=== PATIENT | male | born 1980 | race Caucasian/White ===

== ENCOUNTER 2017-01-11 23:30 | Emergency (ER) | payer OTHER ==
[~2017-01-11] VITALS: Ht 188 cm; Wt 90.2 kg
[2017-01-11 23:33] VITALS: BP 129/85; PULSE 62; RESP 16; TEMP 97.9; O2SAT 100
--- NOTE | 2017-01-12 00:07 | PD ---
HPI Chief Complaint: Musculoskeletal Complaint Time Seen by Provider: 23:45 Travel History International Travel<30 days: No Contact w/Intl Traveler<30days: No Traveled to known affect area: No History of Present Illness HPI The patient is a 36-year-old male that complains of a crampy pain today in the right posterior thigh. He states it is not a hamstring and extending the knee and stretching his hamstring does not reproduce the pain. He states the pain comes on when he sits still and bends his knee at 90. He has never had a pain like this before. He took 600 Motrin today but this did not help the pain. 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 The patient states he had a friend with a similar complaint and it turned out to be a blood clot and he is worried about a blood clot. [facility] Past Medical History Medical History: Denies Significant Hx Anxiety: Yes Diminished Hearing: No Immunizations Current: Yes Tetanus Vaccination: Never Vaccinated Past Surgical History Surgical History: No Previous Surgery Social History Alcohol Use: Yes (SOCIALLY) Tobacco Use: No Substance Use: No Allergies-Medications (Allergen,Severity, Reaction): Coded Allergies: No Known Allergies (Verified , 01/11/17) Reported Meds & Prescriptions Reported Meds & Active Scripts Active No Active Prescriptions or Reported Medications Review of Systems Except as stated in HPI: all other systems reviewed are Neg Physical Exam Narrative GENERAL: Well-nourished, well-developed patient in minimal apparent distress with his right posterior thigh pain SKIN: Focused skin assessment warm/dry. HEAD: Normocephalic. EYES: No scleral icterus. No injection or drainage. NECK: Supple, trachea midline. No JVD or lymphadenopathy. CARDIOVASCULAR: Regular rate and rhythm without murmurs, gallops, or rubs. RESPIRATORY: Breath sounds equal bilaterally. No accessory muscle use. GASTROINTESTINAL: Abdomen soft, non-tender, nondistended. MUSCULOSKELETAL: No cyanosis, or edema. There is no apparent tenderness over the hamstrings. Stretching the hamstrings out by extending the knee does not reproduce the patient's pain. There is some tenderness on one spot in the mid posterior thigh. No cord is palpated in the calf. No swelling is noted in either the upper or lower leg. Homans sign is negative and there is no calf vein tenderness present. BACK: Nontender without obvious deformity. No CVA tenderness. Data Data Last Documented VS Vital Signs Date Time Temp Pulse Resp B/P Pulse Ox O2 Delivery O2 Flow Rate FiO2 01/11/17 23:33 97.9 62 16 129/85 100 Orders Us Leg Venous Doppler (01/12/17 00:01) MDM Medical Decision Making Medical Screen Exam Complete: Yes Emergency Medical Condition: Yes Medical Record Reviewed: Yes Interpretation(s) Ultrasound of the right leg is normal, no evidence of DVT. Differential Diagnosis Fasciitis, pulled hamstring, DVT Narrative Course The 600 of Motrin that he took earlier this evening may be working, the pain is reduced at this time. He was offered a Toradol shot but declined. Diagnosis Primary Impression: Fasciitis Additional Impression: Right thigh pain Additional Instructions: As we discussed, take the Motrin one tablet 3 times daily. You can try a heating pad on as well as setting an interposed a towel between your skin and the pad area sometimes this is useful. Hot is not useful but warm may help. Follow-up with her primary care physician if this does not get better within 4- 5 days. Med/Other Pt SpecificInfo: Prescription(s) given Scripts Ibuprofen 800 Mg [id number] Mg PO TID #44 TAB Ref 0 Prov:Delmar Dillon MD 01/12/17 Disposition: 01 DISCHARGE HOME Condition: Stable Delmar Dillon MD Jan 12, 2017 00:07
--- NOTE | 2017-01-12 00:37 | RADHPO ---
EXAM DATE/TIME: 01/12/2017 00:22 [facility] COMPARISON: No previous studies available for comparison. INDICATIONS : Right leg pain. MEDICAL HISTORY : Right leg pain. SURGICAL HISTORY : None. ENCOUNTER: Initial ACUITY: 1 day PAIN SCORE: 4/10 LOCATION: Right leg. TECHNIQUE: Venous ultrasound of the leg was performed from the inguinal ligament to the proximal calf. Real-guilherme e, color Doppler and spectral tracing, compression and augmentation techniques were used. FINDINGS: There is normal compressibility of the deep venous system from the inguinal region to the proximal ca lf. No echogenic clot is seen in the lumen of the common femoral, femoral, popliteal, and posterior tibial veins. There is a normal response of the venous system to proximal and distal augmentation an d respiration. CONCLUSION: Normal examination. Cortes Webber MD on January 12, 2017 at 0:35 Board Certified Radiologist. This report was verified electronically.
[2017-01-12] MEDS ORDERED: IBUP800T23 PO (00:41)
== END 2017-01-12 00:53 | disposition home or self-care (01) ==
LOC: PHED 23:30
DX: M72.9 Fibroblastic disorder, unspecified (principal); M79.651 Pain in right thigh; Z86.59 Personal history of other mental and behavioral disorders
CPT/HCPCS: 93971

== ENCOUNTER 2017-01-18 08:20 | Emergency (ER) | payer OTHER ==
[~2017-01-18] VITALS: Ht 188 cm; Wt 84.0 kg
[~2017-01-18 08:20] MED LIST: IBUP800T23 PO
[2017-01-18 08:24] VITALS: BP 146/84; PULSE 84; RESP 16; TEMP 97.8; O2SAT 98
[2017-01-18] MEDS ORDERED: FLUT1SPR5 EACH NARE (08:44)
--- NOTE | 2017-01-18 08:54 | PD ---
HPI Chief Complaint: Oral / Dental Pain or Problem Time Seen by Provider: 08:54 Travel History International Travel<30 days: No Contact w/Intl Traveler<30days: No Traveled to known affect area: No History of Present Illness HPI 36-year-old male presents to the emergency department with complaint of bilateral jaw pain since yesterday. Denies injury. He also reports nasal congestion, scratchy throat that onset yesterday. He had low-grade fever of 99.7 last night. Denies nausea, vomiting. Denies tooth pain. Denies ear pain. Denies clicking of the jaw. Says the pain is worse in the morning, and better throughout the day when he uses his jaw, and then worse again at night. Has taken ibuprofen with good relief of pain. Denies chest pain, shortness of breath, abdominal pain. No known allergies. Has no established primary care provider. No other modifying factors or associated signs and symptoms. PFSH Past Medical History Anxiety: Yes Diminished Hearing: No Immunizations Current: Yes Social History Alcohol Use: Yes (SOCIALLY) Tobacco Use: No Substance Use: No Allergies-Medications (Allergen,Severity, Reaction): Coded Allergies: No Known Allergies (Verified , 01/18/17) Reported Meds & Prescriptions Reported Meds & Active Scripts Active Ibuprofen 800 Mg Tab 800 Mg PO Q6HR PRN Deltasone (Prednisone) 20 Mg Tab 40 Mg PO DAILY 5 Days Amoxicillin 500 Mg Cap 500 Mg PO BID 10 Days Ibuprofen 800 Mg Tab 800 Mg PO TID Reported Flonase Nasal [place] (Fluticasone Nasal [place]) 50 Mcg/Act [place] 50 Mcg EACH NARE BID Review of Systems Except as stated in HPI: all other systems reviewed are Neg Physical Exam Narrative GENERAL: Well-nourished, well-developed male patient, in no acute distress; afebrile, nontoxic-appearing SKIN: Warm and dry. No rash. HEAD: Atraumatic. Normocephalic. No facial edema. No clicking to bilateral TMJ with opening and closing of the mouth. Mouth opens completely and closes completely. EYES: Pupils equal and round at 3 mm with brisk reaction. No scleral icterus. No injection or drainage. PERRLA. ENT: Mucosa pink and moist. Oropharynx with erythema; without edema or exudate. No uvular edema. No uvular, palatal, or tonsillar deviation. Airway patent. EARS: Bilateral pinnae and external canals appear within normal limits. Unable to visualize right tympanic membrane secondary to cerumen impaction. Left tympanic membranes without erythema, dullness or perforation. NECK: Trachea midline. No lymphadenopathy. CARDIOVASCULAR: Regular rate and rhythm. RESPIRATORY: No accessory muscle use. GASTROINTESTINAL: Flat. MUSCULOSKELETAL: No obvious deformities. No clubbing. No cyanosis. No edema. NEUROLOGICAL: Awake and alert. Oriented 3. No obvious cranial nerve deficits. Motor grossly within normal limits. Normal speech. Moves all extremities. 5/5 strength to all extremities. PSYCHIATRIC: Appropriate mood and affect; insight and judgment normal. Data Data Last Documented VS Vital Signs Date Time Temp Pulse Resp B/P Pulse Ox O2 Delivery O2 Flow Rate FiO2 01/18/17 08:24 97.8 84 16 146/84 98 Orders Ibuprofen (Motrin) (01/18/17 09:00) Ear Irrigation (01/18/17 08:54) Group A Rapid Strep Screen (01/18/17 08:54) Strep Culture (Group A) (01/18/17 09:00) [facility] Medical Decision Making Medical Screen Exam Complete: Yes Emergency Medical Condition: Yes Medical Record Reviewed: Yes Differential Diagnosis Nonspecific jaw pain, strep pharyngitis, pharyngitis, cerumen impaction Narrative Course 36-year-old male with bilateral jaw pain. On physical exam he has a right cerumen impaction. The right ear was irrigated and cerumen impaction successfully removed. The right tympanic membrane is erythematous, dull, and with loss of landmarks; without perforation. I will treat the patient with amoxicillin for otitis media. I will also give him a prescription for Deltasone for the jaw pain and I discussed starting the Deltasone if the jaw pain does not subside with the amoxicillin. Rapid strep is pending and the patient will be discharged prior to results. Amoxicillin, Deltasone, ibuprofen prescribed for home. Instructed patient to follow up with primary care provider or return to the emergency department on Monday if symptoms persist despite antibiotic therapy. Patient verbalizes understanding and agreement with treatment plan. Patient is medically cleared and stable for discharge. Discussed reasons to return to the emergency department. Instructed patient to follow up with primary care provider. Patient agrees with treatment plan. The patients vital signs are stable and the patient is stable for outpatient follow- up and treatment. Patient discharged home, stable and in no acute distress. Procedures Procedure Narrative Cerumen impaction removal: Right ear was irrigated with warm water and hydrogen peroxide. Cerumen impaction successfully removed. Patient tolerated well. Diagnosis Primary Impression: Jaw pain Additional Impressions: Right otitis media Qualified Code: H66.91 - Right otitis media, unspecified chronicity, unspecified otitis media type Impacted cerumen of right ear Referrals: Primary Care Physician Patient Instructions: General Instructions, Otitis Media (ED) Departure Forms: Tests/Procedures, Work Release Enter return to work date: Jan 19, 2017 Additional Instructions: Take antibiotics as prescribed and complete full course Ibuprofen or Tylenol as directed and as needed to reduce pain and fever Avoid getting water in the ears Do not put anything in the ears; including Q-tips Follow-up with your primary care provider in 2-3 days if symptoms persist Return to the emergency department immediately with worsening of symptoms Med/Other Pt SpecificInfo: Prescription(s) given Scripts Ibuprofen 800 Mg [id number] Mg PO Q6HR PRN (PAIN) #30 TAB Ref 0 Prov:Laura Rodriguez 01/18/17 Prednisone (Deltasone)20 Mg Tab40 Mg PO DAILY 5 Days Ref 0 Prov:Laura Rodriguez 01/18/17 Amoxicillin 500 Mg [id number] Mg PO BID 10 Days Ref 0 Prov:Laura Rodriguez 01/18/17 Disposition: 01 DISCHARGE HOME Condition: Stable Laura Rodriguez Jan 18, 2017 08:54
[2017-01-18] MEDS ORDERED: IBUPROFEN 800 MG TAB PO ONE (09:00)
[2017-01-18] MEDS ORDERED: AMOX500C PO (09:13)
[2017-01-18] MEDS ORDERED: IBUP800T23 PO (09:13)
[2017-01-18] MEDS ORDERED: PRED-503 PO (09:13)
== END 2017-01-18 10:03 | disposition home or self-care (01) ==
LOC: NEPK 08:20
DX: R68.84 Jaw pain (principal); H66.91 Otitis media, unspecified, right ear; H61.21 Impacted cerumen, right ear
CPT/HCPCS: 87081; 87880; 99283

== ENCOUNTER 2017-11-08 17:42 | Emergency (ER) | payer OTHER ==
[~2017-11-08] VITALS: Ht 188 cm; Wt 90.0 kg
[~2017-11-08 17:42] MED LIST changes: +AMOX500C PO; +FLUT1SPR5 EACH NARE; +IBUP1TAB7 PO; -IBUP800T23 PO; +PRED-503 PO
[2017-11-08 17:45] VITALS: BP 158/77; PULSE 67; RESP 12; TEMP 98.2; O2SAT 99
--- NOTE | 2017-11-08 18:15 | PD ---
HPI Chief Complaint: Headache Time Seen by Provider: 18:06 Travel History International Travel<30 days: No Contact w/Intl Traveler<30days: No Traveled to known affect area: No History of Present Illness HPI 37-year-old male presents to emergency department for evaluation of headache 2- 3 days. Intermittently occurring. Patient states 3 days ago his niece found on his head. Since then when he goes to the gym or does any sudden movements he feels significant pressure, mostly on the left side, behind his left eye. No visual disturbances. No cough and chest congestion. No recent illnesses, fever, chills. No other focal deficits or weakness. No nausea vomiting. No other symptoms to report. PFSH Past Medical History Anxiety: Yes Diminished Hearing: No Immunizations Current: Yes Social History Alcohol Use: Yes (SOCIALLY) Tobacco Use: No Substance Use: No Allergies-Medications (Allergen,Severity, Reaction): Coded Allergies: No Known Allergies (Verified Adverse Reaction, Unknown, 11/08/17) Reported Meds & Prescriptions Reported Meds & Active Scripts Active Mometasone Nasal [place] 50 Mcg/Act [place] 2 Carnation EACH NARE DAILY Augmentin (Amoxicillin-Clavulanate) 875-125 Mg Tab 1 Tab PO BID 14 Days Review of Systems Except as stated in HPI: all other systems reviewed are Neg Physical Exam Narrative GENERAL: Well-nourished male patient, ambulatory with a non-ataxic gait no acute distress SKIN: Focused skin assessment warm/dry. HEAD: Atraumatic. Normocephalic. Tenderness elicited palpation over the frontal maxillary sinuses greater on the left than the right. EYES: Pupils equal and round. No scleral icterus. No injection or drainage. ENT: No nasal bleeding or discharge. Mucous membranes pink and moist. NECK: Trachea midline. No JVD. CARDIOVASCULAR: Regular rate and rhythm. No murmur appreciated. RESPIRATORY: No accessory muscle use. Clear to auscultation. Breath sounds equal bilaterally. GASTROINTESTINAL: Abdomen soft, non-tender, nondistended. Hepatic and splenic margins not palpable. MUSCULOSKELETAL: No obvious deformities. No clubbing. No cyanosis. No edema. NEUROLOGICAL: Awake and alert. No obvious cranial nerve deficits. Motor grossly within normal limits. Normal speech. PSYCHIATRIC: Appropriate mood and affect; insight and judgment normal. Data Data Last Documented VS Vital Signs Date Time Temp Pulse Resp B/P (MAP) Pulse Ox O2 Delivery O2 Flow Rate FiO2 11/08/17 20:04 11/08/17 19:09 69 20 100 11/08/17 17:[address] Brain W/O Iv Contrast(Rout) (11/08/17 ) Ed Discharge Order (11/08/17 19:34) MDM Medical Decision Making Medical Screen Exam Complete: Yes Emergency Medical Condition: Yes Medical Record Reviewed: Yes Differential Diagnosis Minor head injury versus intracranial hemorrhage versus concussion versus sinusitis Narrative Course 37-year-old male presents to emergency department for evaluation of a headache intermittently occurring over last 2-3 days. Patient appears without distress. No focal deficits or weakness. CT imaging reveals no acute intracranial abnormality however patient does have severe sphenoid sinusitis. Patient be treated on oral antibiotics and mometasone nasal spray. He is encouraged to seek research clerk evaluation. She agrees to return immediately with any acute worsening of symptoms. Diagnosis Primary Impression: Sinus headache Additional Impression: Sphenoid sinusitis Qualified Codes: J32.3 - Chronic sphenoidal sinusitis Referrals: Ear / Nose / Throat Specialist Primary Care Physician Patient Instructions: General Instructions, Sinusitis (ED) Departure Forms: Tests/Procedures, Work Release Enter return to work date: Nov 10, 2017 Additional Instructions: Humidified air may help to alleviate symptoms [id number] nasal spray, 1 spray each nare in the morning and night. [id number] antihistamines such as Zantac or Benadryl as directed on the package may help symptoms resolve Follow-up with a primary care provider Seek urine is and throat specialist evaluation if symptoms persist Return immediately to the emergency department with any acute worsening symptoms Med/Other Pt SpecificInfo: Prescription(s) given Scripts Mometasone Nasal [place] (Mometasone Nasal [place]) 50 Mcg/Act [place] 2 SPRAY EACH NARE DAILY for Allergy Management, #1 BOTTLE 0 Refills Prov: Janey Cortez 11/08/17 Amoxicillin-Clavulanate (Augmentin) 875-125 Mg Tab 1 TAB PO BID for Infection for 14 Days, #28 TAB 0 Refills Prov: Janey Cortez 11/08/17 Disposition: 01 DISCHARGE HOME Condition: Stable Janey Cortez Nov 08, 2017 18:15
--- NOTE | 2017-11-08 18:29 | PD ---
Physical Exam Date Seen by Provider: Nov 08, 2017 Narrative This patient presents concerned about a head injury. He reports a young child was jumping on his head a few days ago. There was no loss of consciousness. Since then, he has had a couple of headaches associated with physical exertion. Data Data Last Documented VS Vital Signs Date Time Temp Pulse Resp B/P (MAP) Pulse Ox O2 Delivery O2 Flow Rate FiO2 11/08/17 17:45 98.2 67 12 158/77 (104) [address] Brain W/O Iv Contrast(Rout) (11/08/17 ) MDM Supervised Visit with JOSSY: Yes Narrative Course I, Dr. Marquez, have reviewed the advance practice practitioner's documentation and am in agreement, met with the patient face to face, made the diagnosis, and the medical decision making was done by me. *My assessment and Findings: Patient is smiling and moving all 4 extremities equally and in no distress. Please see Janey Cortez NP's note for results of laboratory and radiographic evaluation, ED course, final diagnosis and disposition Scripts No Active Prescriptions or Reported Meds Violeta Marquez MD Nov 08, 2017 18:29
[2017-11-08 19:09] VITALS: BP 140/86; PULSE 69; RESP 20; O2SAT 100
--- NOTE | 2017-11-08 19:20 | RADRPT ---
EXAM DATE/TIME: 11/08/2017 18:58 [facility] COMPARISON: No previous studies available for comparison. INDICATIONS : Cephalgia. RADIATION DOSE: 36.18 CTDIvol (mGy) MEDICAL HISTORY : None SURGICAL HISTORY : None. ENCOUNTER: Initial ACUITY: 1 day PAIN SCALE: 6/10 LOCATION: cranial TECHNIQUE: Multiple contiguous axial images were obtained of the head. Using automated exposure control and adjustment of the mA and/or kV according to patient size, radiation dose was kept as low as reasonably achievable to obtain optimal diagnostic quality images. DICOM format image data is av ailable electronically for review and comparison. FINDINGS: There is no evidence for intracranial hemorrhage, mass effect, mass lesions, edema, or extra-axial fl uid collections. The visualized bony structures appear intact. The ventricles are normal size for t he patient's age. There are no signs of acute infarction for technique. There is extensive opacifica tion of the sphenoid sinuses worse on the left. CONCLUSION: Extensive sphenoid sinusitis. Evin Smart MD on November 08, 2017 at 19:18 Board Certified Radiologist. This report was verified electronically.
[2017-11-08] MEDS ORDERED: AUGM875T3 PO (19:38)
[2017-11-08] MEDS ORDERED: MOME1SPR2 EACH NARE (19:38)
== END 2017-11-08 20:10 | disposition home or self-care (01) ==
LOC: NEPE 17:42
DX: J32.3 Chronic sphenoidal sinusitis (principal); F41.9 Anxiety disorder, unspecified
CPT/HCPCS: 70450; 99283